=== PATIENT | female | born 1935 | race Caucasian/White ===

== ENCOUNTER 2017-10-14 13:07 | Emergency (ER) | payer MEDICARE, BC ==
[~2017-10-14] VITALS: Ht 162.6 cm; Wt 65.0 kg
[2017-10-14 13:16] VITALS: BP 139/91
== END 2017-10-14 13:41 | disposition home or self-care (01) ==
LOC: ER 13:08
DX: S60.211A Contusion of right wrist, initial encounter (principal); X58.XXXA Exposure to other specified factors, initial encounter; Y93.89 Activity, other specified; Y92.89 Other specified places as the place of occurrence of the external cause; Y99.8 Other external cause status
CPT/HCPCS: 99281